=== PATIENT | female | born 1975 | race Caucasian/White ===

== ENCOUNTER 2018-11-12 08:54 | Emergency (ER) | payer OTHER ==
[~2018-11-12] VITALS: Ht 175.3 cm; Wt 81.7 kg
[2018-11-12] MEDS ORDERED: LIPITOR10 MG PO (11:48)
[2018-11-12] MEDS ORDERED: NORVASC5 MG PO (11:48)
--- NOTE | 2018-11-12 13:30 | EKG ---
[facility] [address] [place], [place] [address] Signed Normal sinus rhythm Normal ECG No previous ECGs available Confirmed by VERENA WANG MD ([id number]) on 11/12/2018 1:29:56 PM Electronically Signed By: VERENA AWNG MD 11/12/18 1330 PATIENT NAME: CARMELINA WINTER Electrocardiogram DATE OF : 73 PHYSICIAN: VERENA WANG MD REPORT #: [id number] REPORT IS CONFIDENTIAL AND NOT TO BE RELEASED WITHOUT AUTHORIZATION
== END 2018-11-12 11:57 | disposition home or self-care (01) ==
LOC: ED 08:54
DX: G45.9 Transient cerebral ischemic attack, unspecified (principal); I10 Essential (primary) hypertension; Z71.6 Tobacco abuse counseling; Z88.0 Allergy status to penicillin; Z88.1 Allergy status to other antibiotic agents
CPT/HCPCS: 70496; 70498; 71045; 80053; 84484; 84703; 85025; 85610; 93005; 93010; 99284-25; 99406; Q9967